=== PATIENT | female | born 1995 | race Hispanic/Latino ===

== ENCOUNTER 2021-04-04 17:49 | Emergency (ER) | payer SELFPAY ==
[2021-04-04 18:50] LABS: #Monocytes 0.5 10x3/uL (0.0-1.1); #Neutrophils 6.6 10x3/uL (1.5-8.4); %Basophils 0.2 % (0.0-2.0); %Eosinophils 0.2 % (0.0-6.0); %Monocytes 5.8 % (0.0-10.0); %Neutrophils 75.3 % (40.0-75.0); Hemoglobin 11.7 g/dL (12.0-15.5); Mean Corpuscular HGB CONC 33.4 g/dL (32.0-36.0); Mean Corpuscular Hemoglobin 28.5 pg (27.0-33.0); Mean Corpuscular Volume 85.4 fl (81.6-98.3); Mean Platelet Volume 12.8 fl (7.4-10.4); Platelet Count 195 10x3/uL (150-450); RBC Distribution Width 13.9 % (11.5-14.5); White Blood Cell (WBC) Count 8.8 10x3/uL (3.5-10.5)
[2021-04-04 18:59] LABS: INR-International Normal Ratio 0.8; PTT 21.5 sec (22.0-33.0); Prothrombin Time 9.3 sec (9.5-12.1)
[2021-04-04 19:00] LABS: ALT (SGPT) 14 U/L (8-55); AST (SGOT) 27 U/L (5-34); Albumin 3.5 g/dL (3.5-5.0); Alkaline Phosphatase 141 U/L (40-110); Anion Gap 14 mmol/L (10-20); BUN (Urea Nitrogen) 8 mg/dL (7.0-18.7); Bilirubin, Total 0.2 mg/dL (0.2-1.2); CK (CPK) 124 U/L (29-168); Calc. Creatinine Clearance 0 mL/min (70-130); Calcium 8.9 mg/dL (7.8-10.44); Carbon Dioxide 20 mmol/L (22-29); Chloride 109 mmol/L (98-107); Globulin 3.2 g/dL (2.4-3.5); Glucose 101 mg/dL (70-105); Potassium 3.7 mmol/L (3.5-5.1); Protein, Total 6.7 g/dL (6.0-8.3); Sodium 139 mmol/L (136-145)
[2021-04-04] MEDS ORDERED: Acetaminophen 500 MG TAB ONE (19:10)
[2021-04-04 20:15] LABS: Bilirubin Neg (Negative); Blood, Urine Negative (Negative); Clarity Clear (Clear); Glucose, Urine (Dipstick) Normal (Negative); Ketone, Urine Negative (Negative); Leukocyte 100 (Negative); Nitrite Negative (Negative); Protein, Urine (Dipstick) Negative (Neg-Trace); Urobilinogen Normal mg/dL (Less than 2)
[2021-04-04 20:38] LABS: Bacteria/HPF Rare-Few HPF (None Seen); RBC/HPF 0-3 HPF (0-3); Squamous Epithelial 0-3 HPF (0-3)
== END 2021-04-04 20:08 | disposition home or self-care (01) ==
LOC: CSHERS 17:49
DX: R51.9 Headache, unspecified (principal)
CPT/HCPCS: 36415; 70450; 80053; 81003; 81015; 82550; 83605; 85025; 85610; 85730; 93005

== ENCOUNTER 2021-04-26 11:16 | Outpatient (CLI) | payer OTHER ==
[2021-04-27 13:49] LABS: SARS-CoV-2 PCR by NAA Not Detected (NotDetected)
== END 2021-04-26 11:17 | disposition home or self-care (01) ==
LOC: CSHLAB 11:16
PROVIDERS: ATTEND Family Medicine
DX: Z20.822 Contact with and (suspected) exposure to COVID-19 (principal)
CPT/HCPCS: U0003; U0005

== ENCOUNTER 2021-04-30 22:03 | Inpatient (IN) | payer MEDICAID, OTHER, SELFPAY ==
[2021-04-30 22:26] VITALS: BMI 37.8
[2021-05-01] MEDS ORDERED: hydrALAZINE 20 MG/ML VIAL SLOW IVP PRN (00:30)
[2021-05-01] MEDS ORDERED: Methylergonovine 0.2 MG/ML VIAL IM PRN (00:30)
[2021-05-01] MEDS ORDERED: Carboprost 250 MCG/ML AMP IM PRN (00:30)
[2021-05-01] MEDS ORDERED: Promethazine HCl 25 MG/ML VIAL IM PRN ×2 (00:30→13:57)
[2021-05-01] MEDS ORDERED: Ondansetron PF 4 MG/2 ML Vial IVP PRN ×2 (00:30→13:57)
[2021-05-01] MEDS ORDERED: Ibuprofen 800 MG TAB PO PRN (00:30)
[2021-05-01] MEDS ORDERED: Diphenoxylate HCl/Atropine Tablet PO PRN (00:30)
[2021-05-01] MEDS ORDERED: Misoprostol 200 MCG TAB PR PRN (00:30)
[2021-05-01] MEDS ORDERED: Lidocaine 1% (PF) 30 ML VIAL SC PRN (00:30)
[2021-05-01] MEDS ORDERED: NS w/ Oxytocin 30 units 500 ML IV SCH ×2 (01:00)
[2021-05-01] MEDS ORDERED: Bupivacaine 0.25% HCL 30 ML VIAL ONE (08:00)
[2021-05-01] MEDS ORDERED: Lidocaine 1% PF 5 ML VIAL ONE (08:00)
[2021-05-01 10:01] LABS: Hemoglobin 11.4 g/dL (12.0-15.5); Mean Corpuscular HGB CONC 33.6 g/dL (32.0-36.0); Mean Corpuscular Hemoglobin 28.4 pg (27.0-33.0); Mean Corpuscular Volume 84.5 fl (81.6-98.3); Mean Platelet Volume 12.9 fl (7.4-10.4); Platelet Count 138 10x3/uL (150-450); RBC Distribution Width 14.3 % (11.5-14.5); Red Blood Cell (RBC) Count 4.01 10x6/uL (3.90-5.03); White Blood Cell (WBC) Count 8.4 10x3/uL (3.5-10.5)
[2021-05-01 10:46] LABS: Hep B Surf Ag Non-Reactive S/CO (NonReactive); Syphilis Antibody Nonreactive (Nonreactive); Syphilis Antibody Index 0.03 S/CO (<1.00 Non-Reactive)
[2021-05-01 11:01] LABS: HBSAg Index 0.19 S/CO (0-0.99)
[2021-05-01] MEDS ORDERED: Butorphanol Tartrate 1 MG/ML VIAL SLOW IVP PRN (13:06)
[2021-05-01] MEDS ORDERED: Fentanyl 2 mcg/Bup 0.1% Cadd 100 ML ONE (13:48)
[2021-05-01] MEDS ORDERED: Hydrocerin (Eucerin) Cream 120 gm Jar TOP PRN (13:57)
[2021-05-01] MEDS ORDERED: Lactated Ringer's 500 ML IV PRN (13:57)
[2021-05-01] MEDS ORDERED: diphenhydrAMINE 50 MG/ML VIAL IVP PRN (13:57)
[2021-05-01] MEDS ORDERED: Acetaminophen 325 MG TAB PO PRN (13:57)
[2021-05-01] MEDS ORDERED: ePHEDrine Sulfate 50 MG/10 ML VIAL SLOW IVP PRN (13:57)
[2021-05-01] MEDS ORDERED: Naloxone HCl 0.4 mg/ml Vial IVP PRN ×2 (13:57)
[2021-05-01] MEDS ORDERED: Fentanyl 2 mcg/Bupivacaine 0.1% Cassette 100 ML EPIDURAL SCH (14:00)
[2021-05-01] MEDS ORDERED: Communication Order-Pharmacy FS SCH (14:00)
[2021-05-01] MEDS ORDERED: Fentanyl 100 MCG/2 ML VIAL ONE (18:45)
[2021-05-01] MEDS ORDERED: ceFAZolin 2 GM/Dextrose 50 ML IVPB ONE (23:43)
[2021-05-01] MEDS ORDERED: Azithromycin 500 MG VIAL ONE (23:43)
[2021-05-01] MEDS ORDERED: Azithromycin 500 MG in Sodium Chloride 0.9% 250 ML 250 ML IVPB SCH (23:45)
[2021-05-01] MEDS ORDERED: ceFAZolin 2 GM/Dextrose 50 ML 2 GM in Premix Bag 1 BAG IVPB SCH (23:45)
[2021-05-01] MEDS ORDERED: Famotidine/PF 20 mg/2ml Vial SLOW IVP PRN (23:57)
[2021-05-01] MEDS ORDERED: Bicitra 30 ML UDCUP PO PRN (23:57)
[2021-05-02] MEDS ORDERED: Fentanyl 100 MCG/2 ML VIAL ONE ×2 (00:23→01:22)
[2021-05-02] MEDS ORDERED: Ondansetron PF 4 MG/2 ML Vial ONE (00:27)
[2021-05-02] MEDS ORDERED: Oxytocin 10 UNITS/ML VIAL ONE ×2 (00:28→01:31)
[2021-05-02] MEDS ORDERED: Dexamethasone 4 mg/ml Vial ONE (00:28)
[2021-05-02] MEDS ORDERED: Morphine PF 10 MG/10 ML VIAL ONE (00:52)
[2021-05-02 01:09] LABS: pH (Cord, venous) 7.237 (7.250-7.350)
[2021-05-02] MEDS ORDERED: Midazolam HCl 2 mg/2 ml Vial ONE (01:25)
[2021-05-02] MEDS ORDERED: diphenhydrAMINE 50 MG/ML VIAL IVP PRN (01:56)
[2021-05-02] MEDS ORDERED: Ondansetron PF 4 MG/2 ML Vial IVP PRN ×2 (01:56→03:55)
[2021-05-02] MEDS ORDERED: Ondansetron HCl/PF 4 MG/2 ML Vial IVP PRN (01:56)
[2021-05-02] MEDS ORDERED: HYDROmorphone 2 MG/ML VIAL SLOW IVP PRN (01:56)
[2021-05-02] MEDS ORDERED: Promethazine HCl 25 MG/ML VIAL IM PRN ×2 (01:56→03:55)
[2021-05-02] MEDS ORDERED: Naloxone HCl 0.4 mg/ml Vial IV PRN (01:56)
[2021-05-02] MEDS ORDERED: Fentanyl 100 MCG/2 ML VIAL SLOW IVP PRN (01:56)
[2021-05-02] MEDS ORDERED: Naloxone HCl 0.4 mg/ml Vial IVP PRN ×2 (01:56)
[2021-05-02] MEDS ORDERED: Hydrocerin (Eucerin) Cream 120 gm Jar TOP PRN (01:56)
[2021-05-02] MEDS ORDERED: Promethazine HCl 25 MG SUPP PR PRN (01:56)
[2021-05-02] MEDS ORDERED: Meperidine HCl/PF 25 MG/ML VIAL SLOW IVP PRN (01:56)
[2021-05-02] MEDS ORDERED: Communication Order-Pharmacy FS SCH (02:00)
[2021-05-02] MEDS ORDERED: Ketorolac Tromethamine 30 MG/ML VIAL IVP SCH (02:00)
[2021-05-02] MEDS ORDERED: Misoprostol 200 MCG TAB PR PRN (03:55)
[2021-05-02] MEDS ORDERED: Acetaminophen 325 MG TAB PO PRN (03:55)
[2021-05-02] MEDS ORDERED: diphenhydrAMINE 25 MG CAP PO PRN (03:55)
[2021-05-02] MEDS ORDERED: Methylergonovine 0.2 MG/ML VIAL IM PRN (03:55)
[2021-05-02] MEDS ORDERED: Simethicone Chewable 80 MG TAB PO PRN (03:55)
[2021-05-02] MEDS ORDERED: hydrALAZINE 20 MG/ML VIAL SLOW IVP PRN (03:55)
[2021-05-02] MEDS ORDERED: Boostrix 0.5 ML (Tdap) VIAL IM ONE (03:55)
[2021-05-02] MEDS ORDERED: NS w/ Oxytocin 30 units 500 ML IV SCH (04:00)
[2021-05-02] MEDS: Lactated Ringer's 1,000 ML IV SCH ×3 (04:03→21:01)
[2021-05-02] MEDS: Ferrous Sulfate 325 MG TAB PO SCH ×2 (09:23→21:01)
[2021-05-02] MEDS: Docusate 100 MG CAP PO SCH ×2 (09:23→21:20)
[2021-05-02] MEDS: Prenatal Vitamin 1 TAB PO SCH (09:23)
[2021-05-02] MEDS: Ketorolac Tromethamine 30 MG/ML VIAL IVP PRN ×2 (13:32→19:42)
[2021-05-03 05:02] LABS: Hemoglobin 8.6 g/dL (12.0-15.5); Mean Corpuscular HGB CONC 33.3 g/dL (32.0-36.0); Mean Corpuscular Hemoglobin 28.7 pg (27.0-33.0); Mean Platelet Volume 12.3 fl (7.4-10.4); Platelet Count 131 10x3/uL (150-450); RBC Distribution Width 14.6 % (11.5-14.5); White Blood Cell (WBC) Count 11.9 10x3/uL (3.5-10.5)
[2021-05-03] MEDS: Lactated Ringer's 1,000 ML IV SCH ×2 (05:03→11:13)
[2021-05-03] MEDS: Ibuprofen 800 MG TAB PO SCH ×3 (05:38→21:29)
[2021-05-03] MEDS: Docusate 100 MG CAP PO SCH ×2 (09:28→21:27)
[2021-05-03] MEDS: Prenatal Vitamin 1 TAB PO SCH (09:28)
[2021-05-03] MEDS: Ferrous Sulfate 325 MG TAB PO SCH ×2 (09:28→21:28)
[2021-05-03] MEDS: HYDROcodone/Acetaminophen 5/325 mg Tablet PO PRN ×2 (11:26→18:36)
[2021-05-03] MEDS ORDERED: Ibuprofen 800 MG TAB PO SCH (22:00)
[2021-05-04] MEDS: HYDROcodone/Acetaminophen 5/325 mg Tablet PO PRN ×2 (06:00→10:37)
[2021-05-04] MEDS: Ibuprofen 800 MG TAB PO SCH (06:01)
[2021-05-04] MEDS: Lactated Ringer's 1,000 ML IV SCH (06:03)
[2021-05-04 07:38] VITALS: BP 115/73; TEMP 98.5
[2021-05-04] MEDS: Prenatal Vitamin 1 TAB PO SCH (08:14)
[2021-05-04] MEDS: Docusate 100 MG CAP PO SCH (08:14)
[2021-05-04] MEDS: Ferrous Sulfate 325 MG TAB PO SCH (08:14)
== END 2021-05-04 13:18 | disposition home or self-care (01) | DRG 788 ==
LOC: CSHLD/OP 22:03 → CSHLD 05-01 06:33 → CSHPED 05-02 03:45
PROVIDERS: ADMIT Family Medicine; ATTEND Family Medicine
PROC: 10D00Z1 Extraction of Products of Conception, Low, Open Approach (ICD-10-PCS; principal; 2021-05-02)
DX: O64.0XX0 Obstructed labor due to incomplete rotation of fetal head, not applicable or unspecified (principal); Z3A.40 40 weeks gestation of pregnancy; O76 Abnormality in fetal heart rate and rhythm complicating labor and delivery; Z37.0 Single live birth; O69.81X0 Labor and delivery complicated by cord around neck, without compression, not applicable or unspecified; O77.0 Labor and delivery complicated by meconium in amniotic fluid; O62.1 Secondary uterine inertia; O75.81 Maternal exhaustion complicating labor and delivery
CPT/HCPCS: 36415; 51702; 82805; 85027; 86780; 86850; 86900; 86901; 87340; 88307; 99285; J0595; J1100; J1885; J2250; J2274; J2405; J2590; J3010; S0020

== ENCOUNTER 2025-01-31 11:58 | Emergency (ER) | payer OTHER | END 2025-01-31 15:05 | disposition home or self-care (01) | LOC: CSHERS 11:58 | DX: O9A.213 Injury, poisoning and certain other consequences of external causes complicating pregnancy, third trimester (principal); S60.222A Contusion of left hand, initial encounter; S80.01XA Contusion of right knee, initial encounter; W18.30XA Fall on same level, unspecified, initial encounter; Z3A.30 30 weeks gestation of pregnancy | CPT/HCPCS: 76815 ==

== ENCOUNTER 2025-03-31 23:49 | Day surgery (SDC) | payer OTHER ==
[2025-04-01 00:33] VITALS: BMI 39.6
[2025-04-01] MEDS ORDERED: hydrALAZINE 20 MG/ML VIAL SLOW IVP PRN (00:54)
[2025-04-01 06:25] LABS: #Basophils Less than 0.03 10x3/uL (0.0-0.2); #Eosinophils Less than 0.03 10x3/uL (0.0-0.5); #Monocytes 0.40 10x3/uL (0.0-1.1); #Neutrophils 8.82 10x3/uL (1.5-8.4); %Basophils 0.2 % (0.0-2.0); %Eosinophils 0.1 % (0.0-6.0); %Lymphocytes 8.9 % (18.0-47.0); %Monocytes 3.9 % (0.0-10.0); %Neutrophils 86.2 % (40.0-75.0); ALT (SGPT) 14 U/L (Less than 34); AST (SGOT) 32 U/L (11-34); Albumin 2.8 g/dL (3.1-4.5); Alkaline Phosphatase 163 U/L (40-110); Anion Gap 17 mmol/L (10-20); BUN (Urea Nitrogen) 7 mg/dL (7.0-18.7); Bilirubin, Total 0.3 mg/dL (0.3-1.2); Calc. Creatinine Clearance 258 mL/min (70-130); Calcium 8.4 mg/dL (7.8-10.44); Carbon Dioxide 16 mmol/L (22-29); Chloride 110 mmol/L (98-107); Globulin 2.9 g/dL (2.4-3.5); Glucose 88 mg/dL (70-105); Hematocrit 32.9 % (34.9-44.5); Hemoglobin 11.3 g/dL (12.0-15.5); Mean Corpuscular Hemoglobin 28.8 pg (27.0-33.0); Mean Corpuscular Volume 83.9 fL (81.6-98.3); Platelet Count 141 10x3/uL (150-450); Potassium 3.7 mmol/L (3.5-5.1); Red Blood Cell (RBC) Count 3.92 10x6/uL (3.90-5.03); Sodium 139 mmol/L (136-145); White Blood Cell (WBC) Count 10.23 10x3/uL (3.5-10.5)
== END 2025-04-01 03:06 | disposition home or self-care (01) ==
LOC: CSHERS 23:49
PROVIDERS: ATTEND Family Medicine
DX: O47.1 False labor at or after 37 completed weeks of gestation (principal); O99.613 Diseases of the digestive system complicating pregnancy, third trimester; K52.9 Noninfective gastroenteritis and colitis, unspecified; O21.2 Late vomiting of pregnancy; Z3A.39 39 weeks gestation of pregnancy
CPT/HCPCS: 80053; 85025; 96360; 99285

== ENCOUNTER 2025-04-05 09:13 | Inpatient (IN) | payer MEDICAID, OTHER, SELFPAY ==
[2025-04-04 13:03] LABS: Hematocrit 35.0 % (34.9-44.5); Hemoglobin 11.9 g/dL (12.0-15.5); Platelet Count 174 10x3/uL (150-450)
[2025-04-04 13:40] LABS: Syphilis Antibody Index 0.04 S/CO (<1.00 Non-Reactive)
[2025-04-04 13:42] LABS: Hep B Surf Ag Non-Reactive S/CO (NonReactive)
[2025-04-05] MEDS ORDERED: Bicitra 30 ML UDCUP PO PRN (10:09)
[2025-04-05] MEDS ORDERED: hydrALAZINE 20 MG/ML VIAL SLOW IVP PRN ×2 (10:09→16:15)
[2025-04-05] MEDS ORDERED: Tranexamic Acid 1,000 MG/10 ML VIAL IVP PRN (10:09)
[2025-04-05] MEDS ORDERED: Methylergonovine 0.2 MG/ML VIAL IM PRN (10:09)
[2025-04-05] MEDS ORDERED: Carboprost 250 MCG/ML AMP IM PRN (10:09)
[2025-04-05] MEDS ORDERED: Diphenoxylate HCl/Atropine Tablet PO PRN (10:09)
[2025-04-05] MEDS ORDERED: Ondansetron PF 4 MG/2 ML Vial IVP PRN ×4 (10:09→16:15)
[2025-04-05] MEDS ORDERED: Oxytocin 30 units/NS 500 ML 500 ML IV SCH (10:09)
[2025-04-05 10:11] VITALS: BMI 39.3
[2025-04-05] MEDS: Famotidine/PF 20 mg/2ml Vial SLOW IVP PRN (10:24)
[2025-04-05] MEDS ORDERED: HYDROmorphone 0.5 MG/0.5 ML SYRINGE SLOW IVP PRN (11:49)
[2025-04-05] MEDS ORDERED: Ketorolac Tromethamine 30 MG (1 mL) VIAL IVP PRN (11:49)
[2025-04-05] MEDS ORDERED: Meperidine HCl/PF 25 MG (1 mL) VIAL SLOW IVP PRN (11:49)
[2025-04-05] MEDS ORDERED: diphenhydrAMINE 50 MG/ML VIAL IVP PRN (11:49)
[2025-04-05] MEDS ORDERED: Communication Order-Pharmacy FS SCH (12:00)
[2025-04-05 13:36] LABS: #Basophils Less than 0.03 10x3/uL (0.0-0.2); #Eosinophils Less than 0.03 10x3/uL (0.0-0.5); #Monocytes 0.40 10x3/uL (0.0-1.1); #Neutrophils 8.37 10x3/uL (1.5-8.4); %Basophils 0.2 % (0.0-2.0); %Eosinophils 0.1 % (0.0-6.0); %Lymphocytes 11.4 % (18.0-47.0); %Monocytes 4.0 % (0.0-10.0); %Neutrophils 83.7 % (40.0-75.0); Hematocrit 35.4 % (34.9-44.5); Hemoglobin 12.0 g/dL (12.0-15.5); Mean Corpuscular Hemoglobin 28.4 pg (27.0-33.0); Mean Corpuscular Volume 83.7 fL (81.6-98.3); Platelet Count 175 10x3/uL (150-450); Red Blood Cell (RBC) Count 4.23 10x6/uL (3.90-5.03); White Blood Cell (WBC) Count 10.00 10x3/uL (3.5-10.5)
[2025-04-05 13:52] LABS: ALT (SGPT) 15 U/L (Less than 34); AST (SGOT) 30 U/L (11-34); Albumin 2.7 g/dL (3.1-4.5); Alkaline Phosphatase 192 U/L (40-110); Anion Gap 11 mmol/L (10-20); BUN (Urea Nitrogen) 8 mg/dL (7.0-18.7); Bilirubin, Total 0.2 mg/dL (0.3-1.2); Calc. Creatinine Clearance 249 mL/min (70-130); Calcium 8.6 mg/dL (7.8-10.44); Carbon Dioxide 20 mmol/L (22-29); Chloride 109 mmol/L (98-107); Globulin 3.1 g/dL (2.4-3.5); Glucose 88 mg/dL (70-105); Potassium 3.8 mmol/L (3.5-5.1); Sodium 136 mmol/L (136-145)
[2025-04-05] MEDS: Ketorolac Tromethamine 30 MG (1 mL) VIAL IVP SCH ×2 (14:37→21:00)
[2025-04-05] MEDS ORDERED: Lanolin Ointment 7 GM TUBE TOP PRN (16:15)
[2025-04-05] MEDS ORDERED: Bisacodyl 10 MG SUPP PR PRN (16:15)
[2025-04-05] MEDS ORDERED: diphenhydrAMINE 25 MG CAP PO PRN (16:15)
[2025-04-05] MEDS: Oxytocin 10 UNITS/ML VIAL ONE (16:36)
[2025-04-05] MEDS: PHENYLEPHRINE-NS 100 MCG/ML 10 ML SYRINGE ONE (16:37)
[2025-04-05 16:49] LABS: Glucose, Urine (Dipstick) Normal (Negative); Leukocyte Negative (Negative); Protein, Urine (Dipstick) 30 mg/dl (Neg-Trace); Specific Gravity, Urine 1.025 (1.005-1.030)
[2025-04-05 16:56] LABS: Bacteria/HPF None Seen HPF (None Seen); WBC/HPF 0-3 HPF (0-3)
[2025-04-05] MEDS: Ferrous Sulfate 325 MG TAB PO SCH (21:00)
[2025-04-06 04:18] LABS: Hematocrit 30.0 % (34.9-44.5); Hemoglobin 10.3 g/dL (12.0-15.5); Mean Corpuscular Hemoglobin 28.5 pg (27.0-33.0); Mean Corpuscular Volume 82.9 fL (81.6-98.3); Platelet Count 153 10x3/uL (150-450); Red Blood Cell (RBC) Count 3.62 10x6/uL (3.90-5.03); White Blood Cell (WBC) Count 8.25 10x3/uL (3.5-10.5)
[2025-04-06] MEDS: Simethicone Chewable 80 MG TAB PO PRN (09:35)
[2025-04-06] MEDS: HYDROcodone/Acetaminophen 5/325 mg Tablet PO PRN (12:21)
[2025-04-06] MEDS: Ibuprofen 800 MG TAB PO SCH (13:54)
[2025-04-06 17:10] LABS: #Basophils Less than 0.03 10x3/uL (0.0-0.2); #Eosinophils Less than 0.03 10x3/uL (0.0-0.5); #Monocytes 0.73 10x3/uL (0.0-1.1); #Neutrophils 14.26 10x3/uL (1.5-8.4); %Basophils 0.1 % (0.0-2.0); %Eosinophils 0.0 % (0.0-6.0); %Lymphocytes 9.1 % (18.0-47.0); %Monocytes 4.4 % (0.0-10.0); %Neutrophils 85.8 % (40.0-75.0); Hematocrit 32.1 % (34.9-44.5); Hemoglobin 11.2 g/dL (12.0-15.5); Mean Corpuscular Hemoglobin 28.4 pg (27.0-33.0); Mean Corpuscular Volume 81.5 fL (81.6-98.3); Platelet Count 183 10x3/uL (150-450); Red Blood Cell (RBC) Count 3.94 10x6/uL (3.90-5.03); White Blood Cell (WBC) Count 16.63 10x3/uL (3.5-10.5)
[2025-04-06] MEDS: Ketorolac Tromethamine 30 MG (1 mL) VIAL IVP SCH (17:13)
[2025-04-06 17:28] LABS: ALT (SGPT) 14 U/L (Less than 34); AST (SGOT) 24 U/L (11-34); Albumin 2.4 g/dL (3.1-4.5); Alkaline Phosphatase 153 U/L (40-110); Anion Gap 11 mmol/L (10-20); BUN (Urea Nitrogen) 6 mg/dL (7.0-18.7); Bilirubin, Total 0.3 mg/dL (0.3-1.2); Calc. Creatinine Clearance 218 mL/min (70-130); Calcium 8.1 mg/dL (7.8-10.44); Carbon Dioxide 21 mmol/L (22-29); Chloride 109 mmol/L (98-107); Globulin 2.6 g/dL (2.4-3.5); Glucose 97 mg/dL (70-105); Potassium 3.6 mmol/L (3.5-5.1); Sodium 137 mmol/L (136-145)
[2025-04-07] MEDS: Ibuprofen 800 MG TAB PO SCH (00:02)
[2025-04-07] MEDS: HYDROcodone/Acetaminophen 5/325 mg Tablet PO PRN (05:45)
[2025-04-08 07:52] VITALS: BP 91/52; TEMP 98.4
[2025-04-08] MEDS: Ibuprofen 800 MG TAB PO SCH (08:30)
== END 2025-04-08 14:20 | disposition home or self-care (01) | DRG 788 ==
LOC: CSHLD 09:13 → CSHPP 15:20
PROVIDERS: ADMIT Family Medicine; ATTEND Family Medicine
PROC: 10D00Z1 Extraction of Products of Conception, Low, Open Approach (ICD-10-PCS; principal; 2025-04-05)
DX: O34.211 Maternal care for low transverse scar from previous cesarean delivery (principal); O36.63X0 Maternal care for excessive fetal growth, third trimester, not applicable or unspecified; O99.214 Obesity complicating childbirth; Z3A.39 39 weeks gestation of pregnancy; Z37.0 Single live birth; O90.89 Other complications of the puerperium, not elsewhere classified; R53.83 Other fatigue
CPT/HCPCS: 36415; 51702; 70450; 80053; 81003; 81015; 85014; 85018; 85025; 85027; 85049; 86780; 86850; 86900; 86901; 87340; C1889; J1308; J1885; J2274; J2590; J3010; J7120